=== PATIENT | female | born 1945 | race Caucasian/White ===

== ENCOUNTER 2019-02-15 17:24 | Inpatient (IN) | payer MEDICARE, OTHER ==
[~2019-02-15] VITALS: Ht 165.1 cm; Wt 69.9 kg
[~2019-02-15 17:24] MED LIST: AMLO2.5T2 PO; CLON0.1T14 PO; METO25TA6 PO
--- NOTE | 2019-02-15 18:10 | NUR ---
[facility], PER REPORT VERBALIZED SIBSERGEY LECHUGA FROM [facility] FOR [facility]CH EVAL, PER REPORT VERBALIZED SI. PATIENT A&O TO SELF. REPORTS SOB AND BACK PAIN.
--- NOTE | 2019-02-15 18:11 | NUR ---
O2 SAT 77% WITH O2 AT 2L/MIN VIA NC. PLACED TO NRM AT 15L/MIN. O2 SAT UP TO 100%. MD BEAL
--- NOTE | 2019-02-15 18:20 | NUR ---
RT AT BEDSIDE
[2019-02-15] MEDS ORDERED: methylPREDNISolone SOD SUCC 125 MG/2ML VIAL IV ONE (18:30)
[2019-02-15] MEDS ORDERED: ALBUTEROL FS 2.5 MG/3 ML VIAL.NEB CONTNEB ONE (18:30)
[2019-02-15] MEDS ORDERED: IPRATROPIUM NEB FS 0.5 MG/2.5 ML AMPUL.NEB NEB ONE (18:30)
[2019-02-15 18:35] LABS: BASOPHILS # (AUTO) 0.1 /CMM (0.0-0.2); BASOPHILS % (AUTO) 1.2 % (0.0-2.0); EOSINOPHILS % (AUTO) 0.7 % (0.0-6.0); HEMATOCRIT 38 % (33-45); HEMOGLOBIN 12.3 g/dL (11.5-14.8); LYMPHOCYTES # (AUTO) 1.9 /CMM (0.8-4.8); LYMPHOCYTES % (AUTO) 29.5 % (20.0-44.0); MEAN CORPUSCULAR HGB CONC 32 g/dl (31.0-36.0); MEAN CORPUSCULAR VOLUME 90 fL (82-100); MONOCYTES # (AUTO) 0.8 /CMM (0.1-1.30); MONOCYTES % (AUTO) 12.4 % (2.0-12.0); NEUTROPHILS # (AUTO) 3.6 /CMM (1.8-8.9); NEUTROPHILS % (AUTO) 56.2 % (43.0-81.0); PLATELET COUNT (AUTO) 323 /CMM (150-450); RED BLOOD CELL COUNT(AUTO) 4.29 MIL/uL (4.0-5.2); WHITE BLOOD COUNT (AUTO) 6.3 K/uL (4.3-11.0)
[2019-02-15 18:47] LABS: ACETAMINOPHEN 1 ug/ml (10-30); ALCOHOL, BLOOD < 3 mg/dL (0-0); SALICYLATE 2.1 mg/dL (2.8-20.0)
--- NOTE | 2019-02-15 18:49 | NUR ---
TOPPIECE CHOPPER AT BEDSIDE
[2019-02-15] MEDS ORDERED: FAMO20TA8 PO (18:53)
[2019-02-15] MEDS ORDERED: MAGN400O6 PO (18:53)
[2019-02-15] MEDS ORDERED: POLY15DR40 EACHEYE (18:53)
[2019-02-15] MEDS ORDERED: CARB-94 PO (18:53)
[2019-02-15] MEDS ORDERED: NA P133E RC (18:53)
[2019-02-15] MEDS ORDERED: ACET-868 PO (18:53)
[2019-02-15] MEDS ORDERED: HYDR-4384 PO (18:53)
[2019-02-15] MEDS ORDERED: ALPR1TAB7 PO (18:53)
[2019-02-15] MEDS ORDERED: MIRT15TA7 PO (18:53)
[2019-02-15] MEDS ORDERED: CALC500T63 PO (18:53)
[2019-02-15] MEDS ORDERED: GUAI600T53 PO (18:53)
[2019-02-15] MEDS ORDERED: TEMA15CA PO (18:53)
[2019-02-15] MEDS ORDERED: OMEG1CAP PO (18:53)
[2019-02-15] MEDS ORDERED: PARO20TA7 PO (18:53)
[2019-02-15] MEDS ORDERED: BISA10SU8 RC (18:53)
[2019-02-15] MEDS ORDERED: DILT30TA14 PO (18:53)
[2019-02-15] MEDS ORDERED: CLON0.1T PO (18:53)
[2019-02-15] MEDS ORDERED: IPRA0.2S9 IH (18:53)
[2019-02-15] MEDS ORDERED: METH5TAB6 PO (18:53)
[2019-02-15 18:55] VITALS: BP 130/72
[2019-02-15] MEDS ORDERED: ALBUTEROL FS 2.5 MG/3 ML VIAL.NEB ONE (19:07)
[2019-02-15] MEDS ORDERED: IPRATROPIUM NEB FS 0.5 MG/2.5 ML AMPUL.NEB ONE (19:07)
[2019-02-15] MEDS ORDERED: methylPREDNISolone SOD SUCC 125 MG/2ML VIAL ONE (19:09)
--- NOTE | 2019-02-15 19:19 | NUR ---
REPORT RECEIVED FROM HUE HIDALGO FOR KATHRYN. PT IS HAVING HER XRAY GWEN. PT IN BED
[2019-02-15 19:23] LABS: ALANINE AMINOTRANSFERASE 15 U/L (12-78); ALBUMIN 3.6 g/dL (3.4-5.0); ALKALINE PHOSPHATASE 103 U/L (46-116); ASPARTATE AMINOTRANSFERASE 18 U/L (15-37); BILIRUBIN,DIRECT 0.1 mg/dL (0.0-0.2); BILIRUBIN,TOTAL 0.3 mg/dL (0.2-1.0); CARBON DIOXIDE 30 mmol/L (21-32); CHLORIDE 100 mmol/L (98-107); CREATININE 0.6 mg/dL (0.6-1.3); GLUCOSE 101 mg/dL (74-106); POTASSIUM 3.9 mmol/L (3.5-5.1); SODIUM SERUM 137 mmol/L (136-145); TOTAL PROTEIN, SERUM 7.2 g/dL (6.4-8.2); UREA NITROGEN, BLOOD 10 mg/dL (7-18)
[2019-02-15 19:30] LABS: B-TYPE NATRIURETIC PEPTIDE 430 PG/ML (0-125)
--- NOTE | 2019-02-15 19:55 | NUR ---
PT KEEPS REMOVING BIPAP. PT STATED THAT IT FEELS COLD. PT PLACED ON O2 VIA NV @ 4 LMP AND SATTING AT 95-96% W/O NOTING ANY DISTRESS. ALEXANDREA SAMAYOA NOTIFIED, ORDERED TO PLACE ON MASK @ 8LPM. PT SATTING AT 98$% WITHOUT ANY DISTRESS, PT VERBALIZED RELIEF AND NO SOB. RT MADE AWARE WELL.
--- NOTE | 2019-02-15 20:00 | NUR ---
URINE COLLECTED AND SENT TO LAB
[2019-02-15 20:15] LABS: APPEARANCE,URINE Clear (CLEAR); BILIRUBIN,URINE SMALL (NEGATIVE); BLOOD, URINE Negative Ery/uL (NEGATIVE); COLOR,URINE Yellow (YELLOW); KETONES,URINE 40 (NEGATIVE); LEUKOCYTE ESTERASE ,URINE Trace (NEGATIVE); NITRITE, URINE Negative (NEGATIVE); PROTEIN,URINE Negative (NEGATIVE); UGLUCOSE Negative (NEGATIVE); UROBILINOGEN,URINE 0.2 EU/dL (0.2)
--- NOTE | 2019-02-15 20:18 | NUR ---
RT NOTE LATE ENTRY @195 HUE MARTINEZ PLACED PT ON 7L SIMPLE MASK POST TX. PT SATING 99%. HUE NOTIFIED RT. Addendum: 02/15/19 at 2019 by DENNIS RODRIGUEZ RT Amended: Links added. Addendum: 02/15/19 at 2021 by DENNIS RODRIGUEZ RT HUE MARTINEZ NOTIFIED PHYSICIAN
[2019-02-15 20:35] LABS: BACTERIA,URINE Few /HPF (None Seen); RBC,URINE NONE SEEN /HPF (0-2)
[2019-02-15 20:36] LABS: HYALINE CASTS, URINE Few /LPF (None Seen); MUCUS,URINE Few /LPF (None Seen); SQUAMOUS EPITHELIAL CELL,UR Few /HPF (None Seen)
--- NOTE | 2019-02-15 20:55 | NUR ---
CALLED [facility], PAGED ANDONION
--- NOTE | 2019-02-15 21:52 | NUR ---
CALLED FOR REPORT, NURSE WITH OTHER PT. WILL CALL BACK AGAIN.
[2019-02-15] MEDS ORDERED: Z GUARD REMEDY 2 OZ OINT TP PRN (22:00)
[2019-02-15] MEDS ORDERED: TEMAZEPAM 15 MG CAPSULE PO PRN (22:00)
[2019-02-15] MEDS ORDERED: MIRTAZAPINE 15 MG TABLET PO SCH (22:00)
[2019-02-15] MEDS ORDERED: NA PHOS,M-B/NA PHOS,DI-BA 1 EA ENEMA RC PRN (22:00)
[2019-02-15] MEDS ORDERED: ZOLPIDEM TARTRATE 5 MG TABLET PO PRN (22:00)
[2019-02-15] MEDS ORDERED: PAROXETINE HCL 20 MG TABLET PO SCH (22:00)
[2019-02-15] MEDS ORDERED: MAGNESIUM HYDROXIDE 30 ML UDC PO PRN ×2 (22:00)
[2019-02-15] MEDS ORDERED: AZITHROMYCIN 250 MG TABLET PO ONE (22:00)
[2019-02-15] MEDS ORDERED: MAG HYDROX/AL HYDROX/SIMETH 30 ML UDC PO PRN (22:00)
[2019-02-15] MEDS ORDERED: CLONIDINE HCL 0.1 MG TABLET PO PRN (22:00)
[2019-02-15] MEDS ORDERED: BISACODYL SUPP (10 MG) 10 MG/SUPP.RECT SUPP.RECT RC PRN (22:00)
[2019-02-15] MEDS ORDERED: ACETAMINOPHEN 325 MG TABLET PO PRN (22:00)
[2019-02-15] MEDS ORDERED: ONDANSETRON HCL/PF 4 MG/2 ML VIAL IVP PRN (22:00)
--- NOTE | 2019-02-15 22:03 | NUR ---
REPORT GIVEN TO HUE REEVES FOR KATHRYN. PT GOING TO [address]
--- NOTE | 2019-02-15 22:20 | NUR ---
PT RANSPORTED TO UNIT WITH RN AND EMT AT BEDSIDE W/ ACLS PROTOCOL. PT IS STABLE CONDITION DURING TRASPORT. NAD, BREATHING EVEN AND UNLABORED, PT ON FACE MASK ON O2 @ 8LPM.
[2019-02-15 22:37] VITALS: BP 129/66
[2019-02-16] VITALS: BP 121/69
[2019-02-16] MEDS ORDERED: IPRATROPIUM NEB FS 0.5 MG/2.5 ML AMPUL.NEB NEB SCH ×3 (01:00→07:00)
[2019-02-16] MEDS ORDERED: ALBUTEROL FS 2.5 MG/3 ML VIAL.NEB NEB SCH ×3 (01:00→07:00)
[2019-02-16] MEDS: HYDROCODONE/APAP 5/325MG 1 EACH TABLET PO PRN ×5 (03:37→21:23)
[2019-02-16] MEDS: DILTIAZEM HCL 30 MG TABLET PO SCH ×3 (05:00→20:17)
[2019-02-16 06:46] VITALS: BP 126/69
--- NOTE | 2019-02-16 06:50 | NUR ---
RN NOTES RECEIVED PATIENT FROM ER VIA STRETCHER WITH DIAGNOSIS OF COPD EXACERBATION. NO DISTRESS NOTED. TOLERATING 02 VIA MASK AT 8LPM, LATER CHANGED TO NASAL CANNULA AT 2LPM. COMPLAINING OF LOWER BACK PAIN, NORCO GIVEN WITH RELIEF. ALERT AND ORIENTED. VERBALLY ABLE TO COMMUNICATE NEEDS. NO. KEPT CLEAN AND DRY. NEEDS ATTENDED AND WILL ENDORSE TO NEXT SHIFT FOR CONTINUATION OF JANENE
[2019-02-16] MEDS: IPRATROPIUM NEB FS 0.5 MG/2.5 ML AMPUL.NEB NEB SCH ×5 (07:13→23:20)
[2019-02-16] MEDS: ALBUTEROL FS 2.5 MG/3 ML VIAL.NEB NEB SCH ×5 (07:13→23:20)
[2019-02-16 07:40] LABS: BASOPHILS % (AUTO) 0.5 % (0.0-2.0); HEMATOCRIT 38 % (33-45); HEMOGLOBIN 12.2 g/dL (11.5-14.8); LYMPHOCYTES # (AUTO) 0.7 /CMM (0.8-4.8); LYMPHOCYTES % (AUTO) 11.3 % (20.0-44.0); MEAN CORPUSCULAR HGB CONC 32 g/dl (31.0-36.0); MEAN CORPUSCULAR VOLUME 89 fL (82-100); MONOCYTES # (AUTO) 0.1 /CMM (0.1-1.30); MONOCYTES % (AUTO) 1.1 % (2.0-12.0); NEUTROPHILS # (AUTO) 5.5 /CMM (1.8-8.9); NEUTROPHILS % (AUTO) 87.1 % (43.0-81.0); PLATELET COUNT (AUTO) 356 /CMM (150-450); RED BLOOD CELL COUNT(AUTO) 4.28 MIL/uL (4.0-5.2); WHITE BLOOD COUNT (AUTO) 6.3 K/uL (4.3-11.0)
[2019-02-16 07:55] LABS: CHOLESTEROL 232 mg/dL (<200); HDL CHOLESTEROL 53 mg/dL (40-60); LDL 139 mg/dL (0-99); TRIGLYCERIDES 165 mg/dL (30-150)
[2019-02-16 08:00] VITALS: BP 148/72
[2019-02-16] MEDS: CALCIUM CARBONATE 500 MG TAB.CHEW PO SCH ×3 (08:11→18:00)
[2019-02-16] MEDS: POLYVINYL ALCOHOL 15 ML BOTTLE EACHEYE SCH ×3 (08:11→16:45)
[2019-02-16] MEDS: METHIMAZOLE (5MG) 5 MG TABLET PO SCH ×3 (08:12→16:44)
[2019-02-16] MEDS: methylPREDNISolone SOD SUCC 40 MG/ML VIAL IV SCH (08:12)
[2019-02-16] MEDS: ALPRAZOLAM 1 MG TABLET PO SCH ×3 (08:13→16:44)
[2019-02-16] MEDS: METOPROLOL TARTRATE 25 MG TABLET PO SCH ×2 (08:13→16:44)
[2019-02-16] MEDS: CARBIDOPA/LEVODOPA 25/250 MG 1 UDTAB PO SCH ×3 (08:13→16:44)
[2019-02-16] MEDS: AZITHROMYCIN 250 MG TABLET PO SCH (08:14)
[2019-02-16] MEDS: FAMOTIDINE (20 MG) 20 MG TABLET PO SCH (08:14)
[2019-02-16] MEDS: GUAIFENESIN LA 600 MG TABLET.SA PO PRN (08:15)
[2019-02-16] MEDS ORDERED: Medication Not On Formulary EA (Omega-3 Fatty Acids/Fish Oil (Fish Oil 1,000 Mg Capsule) PO SCH (09:00)
[2019-02-16 09:08] LABS: CALCIUM, SERUM 8.3 mg/dL (8.5-10.1); CARBON DIOXIDE 28 mmol/L (21-32); CHLORIDE 94 mmol/L (98-107); CREATININE 0.7 mg/dL (0.6-1.3); GLUCOSE 123 mg/dL (74-106); PHOSPHORUS 2.8 mg/dL (2.5-4.9); POTASSIUM 4.6 mmol/L (3.5-5.1); SODIUM SERUM 134 mmol/L (136-145); UREA NITROGEN, BLOOD 16 mg/dL (7-18)
[2019-02-16 12:00] VITALS: BP 135/68
[2019-02-16 16:00] VITALS: BP 127/60
--- NOTE | 2019-02-16 19:10 | NUR ---
MS RN OPENING NOTES Received patient in bed, alert, oriented x 3. Breathing even and unlabored. No distress noted, on O2 at 2LPM via nasal cannula. Patient has 1:1 sitter at bedside for suicidal precautions. Jiménez catheter in place- draining clear yellow urine. Patient stable as endorsed by the AM RN. Safety measures in place; call light within reach, bed in low, locked position. Will continue to monitor accordingly
[2019-02-16 20:00] VITALS: BP 123/60
[2019-02-16] MEDS: DIVALPROEX SODIUM 250 MG TABLET.DR PO SCH (20:17)
--- NOTE | 2019-02-16 21:24 | NUR ---
RN NOTES Patient c/o pain on lower back, 04/21. Requested for norco. [place] 5-325 given as ordered.
[2019-02-17] MEDS: HYDROCODONE/APAP 5/325MG 1 EACH TABLET PO PRN ×4 (01:25→20:49)
--- NOTE | 2019-02-17 01:25 | NUR ---
RN NOTES Patient c/o pain on lower back, 04/21. Requested for norco. [place] 5-325 given as ordered.
[2019-02-17] MEDS: ALBUTEROL FS 2.5 MG/3 ML VIAL.NEB NEB SCH ×6 (03:46→23:52)
[2019-02-17] MEDS: IPRATROPIUM NEB FS 0.5 MG/2.5 ML AMPUL.NEB NEB SCH ×6 (03:46→23:52)
[2019-02-17 04:00] VITALS: BP 124/68
[2019-02-17] MEDS: DILTIAZEM HCL 30 MG TABLET PO SCH ×3 (04:19→20:48)
--- NOTE | 2019-02-17 06:40 | NUR ---
MS RN CLOSING NOTES Patient in bed, alert, oriented x 3. Breathing even and unlabored. No distress noted, on O2 at 2LPM via nasal cannula. Patient has 1:1 sitter at bedside for suicidal precautions. Jiménez catheter in place- draining clear yellow urine. All needs attended to. All due medications given as ordered. Safety measures in place; call light within reach, bed in low, locked position. Will endorse KATHRYN to oncoming RN
[2019-02-17 07:43] VITALS: BP 132/62
[2019-02-17] MEDS: CALCIUM CARBONATE 500 MG TAB.CHEW PO SCH ×3 (08:25→18:10)
[2019-02-17 08:31] LABS: CALCIUM, SERUM 8.8 mg/dL (8.5-10.1); CARBON DIOXIDE 29 mmol/L (21-32); CHLORIDE 94 mmol/L (98-107); CREATININE 0.5 mg/dL (0.6-1.3); GLUCOSE 121 mg/dL (74-106); PHOSPHORUS 2.1 mg/dL (2.5-4.9); POTASSIUM 5.2 mmol/L (3.5-5.1); SODIUM SERUM 129 mmol/L (136-145); UREA NITROGEN, BLOOD 15 mg/dL (7-18)
[2019-02-17] MEDS: METHIMAZOLE (5MG) 5 MG TABLET PO SCH ×3 (08:44→17:44)
[2019-02-17] MEDS: ALPRAZOLAM 0.25 MG TABLET PO SCH ×3 (08:44→17:44)
[2019-02-17] MEDS: FAMOTIDINE (20 MG) 20 MG TABLET PO SCH (08:44)
[2019-02-17] MEDS: AZITHROMYCIN 250 MG TABLET PO SCH (08:45)
[2019-02-17] MEDS: METOPROLOL TARTRATE 25 MG TABLET PO SCH ×2 (08:47→17:45)
[2019-02-17] MEDS: methylPREDNISolone SOD SUCC 40 MG/ML VIAL IV SCH (08:48)
[2019-02-17] MEDS: CARBIDOPA/LEVODOPA 25/250 MG 1 UDTAB PO SCH ×3 (09:08→17:44)
[2019-02-17] MEDS: POLYVINYL ALCOHOL 15 ML BOTTLE EACHEYE SCH ×3 (09:12→17:47)
[2019-02-17 09:42] LABS: HEMATOCRIT 35 % (33-45); HEMOGLOBIN 11.6 g/dL (11.5-14.8); LYMPHOCYTES # (AUTO) 1.3 /CMM (0.8-4.8); LYMPHOCYTES % (AUTO) 11.6 % (20.0-44.0); MEAN CORPUSCULAR HGB CONC 33 g/dl (31.0-36.0); MEAN CORPUSCULAR VOLUME 88 fL (82-100); MONOCYTES % (AUTO) 8.9 % (2.0-12.0); NEUTROPHILS # (AUTO) 9.3 /CMM (1.8-8.9); NEUTROPHILS % (AUTO) 79.5 % (43.0-81.0); PLATELET COUNT (AUTO) 389 /CMM (150-450); WHITE BLOOD COUNT (AUTO) 11.6 K/uL (4.3-11.0)
[2019-02-17] MEDS: DIVALPROEX SODIUM 125 MG TABLET.DR PO SCH (11:54)
[2019-02-17 13:00] VITALS: BP 155/86
[2019-02-17] MEDS ORDERED: K PHOS NEUTRAL 250 MG TABLET PO ONE (13:00)
[2019-02-17 16:19] VITALS: BP 148/79
--- NOTE | 2019-02-17 17:12 | NUR ---
Nurse Notes: Seen by Silas PHYSICAL SCIENCE PROFESSOR, ordering pain management Kana Dave MD to see patient, earlier took the Xanax and then ask for the Morris. this afternoon, Xanax is order TID, but spacing out the Morris. Then asking for respiratory therapy. Pulse ox is 91% on 2 liters, patient is encourage to cough and deep breath, patient is coughing up thick phelgm.
--- NOTE | 2019-02-17 19:10 | NUR ---
Nurse Notes: report given to night nurse Doyle Noriega RN. Guthrie is due at 2029. had Xanax .75 mg more relxed. needs to be seen by waiting for Kana Sahu MD
[2019-02-17 20:00] VITALS: BP 148/73
[2019-02-17] MEDS: DIVALPROEX SODIUM 250 MG TABLET.DR PO SCH (20:47)
[2019-02-17 21:19] VITALS: BP 148/73
[2019-02-17] MEDS: GUAIFENESIN LA 600 MG TABLET.SA PO PRN (22:23)
[2019-02-18] MEDS: ALBUTEROL FS 2.5 MG/3 ML VIAL.NEB NEB SCH ×6 (03:47→22:55)
[2019-02-18] MEDS: IPRATROPIUM NEB FS 0.5 MG/2.5 ML AMPUL.NEB NEB SCH ×6 (03:47→22:55)
[2019-02-18 04:00] VITALS: BP 129/67
[2019-02-18 04:08] VITALS: BP 148/73
[2019-02-18] MEDS: DILTIAZEM HCL 30 MG TABLET PO SCH ×3 (05:49→20:19)
[2019-02-18] MEDS: HYDROCODONE/APAP 5/325MG 1 EACH TABLET PO PRN ×3 (06:16→20:02)
[2019-02-18] MEDS: CALCIUM CARBONATE 500 MG TAB.CHEW PO SCH ×3 (08:00→17:10)
[2019-02-18] MEDS: FAMOTIDINE (20 MG) 20 MG TABLET PO SCH (09:00)
[2019-02-18] MEDS: CARBIDOPA/LEVODOPA 25/250 MG 1 UDTAB PO SCH ×3 (09:00→17:10)
[2019-02-18] MEDS: AZITHROMYCIN 250 MG TABLET PO SCH (09:00)
[2019-02-18] MEDS: ALPRAZOLAM 0.25 MG TABLET PO SCH ×3 (09:00→17:10)
[2019-02-18] MEDS: DIVALPROEX SODIUM 125 MG TABLET.DR PO SCH (09:00)
[2019-02-18] MEDS: MUPIROCIN OINT 2% 22 GM TUBE SCH ×2 (09:00→21:08)
[2019-02-18] MEDS: POLYVINYL ALCOHOL 15 ML BOTTLE EACHEYE SCH ×3 (09:00→17:07)
[2019-02-18] MEDS: methylPREDNISolone SOD SUCC 40 MG/ML VIAL IV SCH (09:00)
[2019-02-18] MEDS: METHIMAZOLE (5MG) 5 MG TABLET PO SCH ×3 (09:00→17:10)
[2019-02-18] MEDS: METOPROLOL TARTRATE 25 MG TABLET PO SCH ×2 (09:00→17:10)
[2019-02-18] MEDS ORDERED: MORPHINE SULFATE INJ 2 MG/ML DISP.SYRIN IV ONE (11:00)
[2019-02-18 12:00] VITALS: BP 138/67
[2019-02-18] MEDS: HYDROCODONE/APAP 10/325MG 1 EA TABLET PO PRN (15:08)
[2019-02-18] MEDS: PREGABALIN 25 MG CAPSULE PO SCH (17:10)
--- NOTE | 2019-02-18 19:00 | NUR ---
MS RN OPENING NOTES Received patient A/O x3, awake on semi-Ramos's position on bed. With O2 via NC @ 3LPM, saturating well, no SOB/respiratory distress noted. Patient noted with mild anxiety. With indwelling FC with clear yellow urine output noted. With order for Urine Na+ and osmolarity. To collect urine from FC. On fall precautions, call light within easy reach. Will continue to monitor accordingly.
[2019-02-18 20:00] VITALS: BP 137/73
[2019-02-18] MEDS: GUAIFENESIN LA 600 MG TABLET.SA PO PRN (20:02)
[2019-02-18] MEDS: DIVALPROEX SODIUM 250 MG TABLET.DR PO SCH (20:02)
[2019-02-19] MEDS: HYDROCODONE/APAP 10/325MG 1 EA TABLET PO PRN ×6 (00:03→22:49)
--- NOTE | 2019-02-19 01:15 | NUR ---
MS RN NOTES Urine collected from FC. Aseptic technique observed during the procedure. Specimen labeled and stored accordingly. Lab notified for specimen ready for collection .
[2019-02-19] MEDS: ALBUTEROL FS 2.5 MG/3 ML VIAL.NEB NEB SCH ×6 (02:43→23:06)
[2019-02-19] MEDS: IPRATROPIUM NEB FS 0.5 MG/2.5 ML AMPUL.NEB NEB SCH ×6 (02:43→23:06)
[2019-02-19] MEDS: DILTIAZEM HCL 30 MG TABLET PO SCH ×3 (04:13→20:22)
[2019-02-19 06:45] LABS: CALCIUM, SERUM 8.5 mg/dL (8.5-10.1); CARBON DIOXIDE 34 mmol/L (21-32); CHLORIDE 94 mmol/L (98-107); CREATININE 0.7 mg/dL (0.6-1.3); GLUCOSE 98 mg/dL (74-106); PHOSPHORUS 3.1 mg/dL (2.5-4.9); POTASSIUM 4.2 mmol/L (3.5-5.1); SODIUM SERUM 135 mmol/L (136-145); UREA NITROGEN, BLOOD 12 mg/dL (7-18)
[2019-02-19 06:50] LABS: THYROID STIMULATING HORMONE 7.677 uIU/mL (0.358-3.74); URIC ACID 2.1 mg/dL (2.6-7.2)
[2019-02-19 06:55] LABS: URINE SODIUM, RANDOM 47 mmol/l (40-220)
--- NOTE | 2019-02-19 06:55 | NUR ---
MS RN CLOSING NOTES Patient intermittently asleep on bed, on O2 inhalation via NC @ 5LPM, saturating well, no SOB/respiratory distress noted. All nursing needs attended. Due meds given as ordered. Educated patient about the PRN meds interval, patient verbalized understanding. With indwelling valente catheter in place, with clear urine output. Awaiting for Urine Na+ and osmolarity result at this time. On fall precautions, call light within easy reach. Endorsed to the next shift.
--- NOTE | 2019-02-19 07:25 | NUR ---
RN OPENING NOTES PATIENT IN BED AWAKE AND ALERT. WAS ASKING FOR PAIN MEDICATION FOR HER NECK, BUT TOLD HER NOT DUE UNTIL 0900. PER NOC SHIFT, PATIENT WANTS HER NORCO Q2H. AND PANICS EASILY. PATIENT HAS A RIGHT WRIST #20 SALINE LOCKED. BED LOCKED AND IN LOWEST POSITION. CALL LIGHT WITHIN REACH. WILL CONTINUE TO MONITOR.
[2019-02-19 07:49] LABS: OSMOLALITY,URINE 252 mOS/kg (340-1090)
[2019-02-19 08:00] VITALS: BP 154/77
[2019-02-19] MEDS: CALCIUM CARBONATE 500 MG TAB.CHEW PO SCH ×3 (08:44→17:10)
[2019-02-19] MEDS: ALPRAZOLAM 0.25 MG TABLET PO SCH ×3 (08:45→16:43)
[2019-02-19] MEDS: DIVALPROEX SODIUM 125 MG TABLET.DR PO SCH (08:45)
[2019-02-19] MEDS: PREGABALIN 25 MG CAPSULE PO SCH ×2 (08:45→16:43)
[2019-02-19] MEDS: CARBIDOPA/LEVODOPA 25/250 MG 1 UDTAB PO SCH ×3 (08:46→16:43)
[2019-02-19] MEDS: FAMOTIDINE (20 MG) 20 MG TABLET PO SCH (08:46)
[2019-02-19] MEDS: METHIMAZOLE (5MG) 5 MG TABLET PO SCH ×3 (08:46→16:43)
[2019-02-19] MEDS: methylPREDNISolone SOD SUCC 40 MG/ML VIAL IV SCH (08:47)
[2019-02-19] MEDS: METOPROLOL TARTRATE 25 MG TABLET PO SCH ×2 (08:47→16:45)
[2019-02-19] MEDS: MUPIROCIN OINT 2% 22 GM TUBE SCH ×2 (08:52→20:22)
[2019-02-19] MEDS: POLYVINYL ALCOHOL 15 ML BOTTLE EACHEYE SCH ×3 (08:53→16:44)
[2019-02-19 10:00] VITALS: BP 154/77
[2019-02-19 16:00] VITALS: BP 130/80
--- NOTE | 2019-02-19 16:52 | NUR ---
RN NOTES PATIENT WAS COMPLAINING OF NECK PAIN THROUGHOUT THE DAY. WAS GIVEN NORCO Q4H PRN AT 0830, 1250 AND 1650. BREANA SANTIAGO DNP MADE AWARE AND HE SAID HE ALREADY ORDERED FOR A PAIN MANAGEMENT CONSULT ALSO, PATIENT WAS REQUESTING FOR A SLEEPING PILL BECAUSE SHE WAS HAVING A HARD TIME SLEEPING LAST NIGHT. DNP SAID HE WILL CHECK ALL THE PATIENT'S MEDS FIRST BEFORE PRESCRIBING
--- NOTE | 2019-02-19 19:03 | NUR ---
RN CLOSING NOTES PATIENT IN BED AWAKE AND ALERT. WAS GIVEN NORCO Q4H PRN REQUESTED BY PATIENT WITH 10/10 NECK PAIN. VSS THROUGHOUT THE SHIFT. BED LOCKED AND IN LOWEST POSITION. WILL ENDORSE TO NOC SHIFT FOR KATHRYN
--- NOTE | 2019-02-19 19:30 | NUR ---
MS RN NOTE: RECEIVED PT ON BED ALERT AND ORIENTED X3. ABLE TO MAKE NEEDS KNOWN. NO APPARENT DISTRESS NOTED. NO COMPLAINTS OF PAIN OR DISCOMFORT AT THIS TIME. ON 3LPM NASAL CANNULA, NO SOB NOTED. FARIAS CATH INTACT AND PATENT, DRAINING WELL. IV ON RIGHT WRIST #20 INTACT AND PATENT, FLUSHING WELL. CALL LIGHT PLACED WITHIN REACH. KEPT CLEAN, DRY AND COMFORTABLE. SAFETY AND FALL PRECAUTIONS OBSERVED AND MAINTAINED. WILL CONTINUE TO MONITOR PT.
[2019-02-19 20:00] VITALS: BP 136/75
[2019-02-19] MEDS: DIVALPROEX SODIUM 250 MG TABLET.DR PO SCH (20:22)
[2019-02-19] MEDS ORDERED: risperiDONE 0.25 MG TABLET PO SCH (22:30)
[2019-02-20] MEDS: GUAIFENESIN LA 600 MG TABLET.SA PO PRN (00:58)
[2019-02-20] MEDS: HYDROCODONE/APAP 10/325MG 1 EA TABLET PO PRN (02:50)
[2019-02-20] MEDS: ALBUTEROL FS 2.5 MG/3 ML VIAL.NEB NEB SCH ×4 (02:56→16:42)
[2019-02-20] MEDS: IPRATROPIUM NEB FS 0.5 MG/2.5 ML AMPUL.NEB NEB SCH ×4 (02:56→16:42)
[2019-02-20 04:00] VITALS: BP 153/82
[2019-02-20] MEDS: DILTIAZEM HCL 30 MG TABLET PO SCH ×2 (04:32→12:52)
--- NOTE | 2019-02-20 06:31 | NUR ---
MS RN NOTE: NO CHANGES NOTED THROUGHOUT THE SHIFT. NO SUICIDAL IDEATIONS AND NO APPARENT DISTRESS NOTED. PT COMPLAINED OF BACK AND RIGHT HIP PAIN, PRN NORCO GIVEN ORDERED. ON 3LPM NASAL CANNULA, NO SOB NOTED. IV ON RIGHT WRIST #20 INTACT AND FLUSHING WELL. NO SIGNS/SYMPTOMS OF INFILTARTION NOTED. FARIAS CATH INTACT AND PATENT, DRAINED 1300ML OF CLEAR YELLOW URINE OUTPUT. KEPT CLEAN, DRY AND COMFORTABLE. CALL LIGHT PLACED WITHIN REACH. SAFETY AND FALL PRECAUTIONS OBSERVED AND MAINTAINED. WILL ENDORSE TO DAY SHIFT RN FOR CONTINUITY OF CARE.
--- NOTE | 2019-02-20 07:30 | NUR ---
RN NOTES RECEIVED PATIENT IN BED, ASLEEP BUT EASILY AWAKEN BY VERBAL STIMULI. ORIENTED X3, ABLE TO MAKE NEEDS KNOWN. WAS ASKING FOR MEDICATION FOR PAIN DUE TO NECK DISCOMFORT, PAIN SCALE OF 10/10. INFORMED PATIENT WILL ADMINISTER DUE MEDICATION. PATIENT HAS A RIGHT WRIST #20, IN PLACE D AND INTACT, PATENT ON FLUSHING:SALINE LOCKED. ENCOURAGE TO CALL FOR HELP AND ASSISTANCE. CALL LIGHT PLACED WITHIN REACHED. BED LOCKED AND IN LOWEST POSITION.. WILL CONTINUE TO ANTICIPATE NEEDS AND MONITOR CHANGES.
[2019-02-20 08:00] VITALS: BP 129/69
[2019-02-20] MEDS: methylPREDNISolone SOD SUCC 40 MG/ML VIAL IV SCH (08:29)
[2019-02-20] MEDS: METOPROLOL TARTRATE 25 MG TABLET PO SCH ×2 (08:29→16:57)
[2019-02-20] MEDS: CALCIUM CARBONATE 500 MG TAB.CHEW PO SCH ×3 (08:29→16:56)
[2019-02-20] MEDS: METHIMAZOLE (5MG) 5 MG TABLET PO SCH ×3 (08:30→16:55)
[2019-02-20] MEDS: DIVALPROEX SODIUM 125 MG TABLET.DR PO SCH (08:30)
[2019-02-20] MEDS: ALPRAZOLAM 0.25 MG TABLET PO SCH ×3 (08:30→16:55)
[2019-02-20] MEDS: PREGABALIN 25 MG CAPSULE PO SCH ×2 (08:30→16:55)
[2019-02-20] MEDS: CARBIDOPA/LEVODOPA 25/250 MG 1 UDTAB PO SCH ×3 (08:30→16:55)
[2019-02-20] MEDS: FAMOTIDINE (20 MG) 20 MG TABLET PO SCH (08:30)
[2019-02-20] MEDS: POLYVINYL ALCOHOL 15 ML BOTTLE EACHEYE SCH ×3 (08:38→16:57)
[2019-02-20] MEDS: MUPIROCIN OINT 2% 22 GM TUBE SCH (08:38)
[2019-02-20] MEDS: HYDROCODONE/APAP 5/325MG 1 EACH TABLET PO PRN ×2 (09:32→15:53)
--- NOTE | 2019-02-20 11:19 | NUR ---
Social Work Discharge Note Met with patient who denies any current suicidal ideation. Also discussed case with Dr Tellez who says she adjusted patient's medication last night and added an anti-psychotic. She feels patient can be followed by outpatient psychiatrist at [facility]. This clinician met with the patient who stated " I am napping now as I did not sleep well last night". Pt. denied any current suicidal ideation and acknowledged that she does get fleeting suicidal ideation from time to time. She has no current plan or ideation. Patient is not meeting inpatient acute psychiatric admission criteria. Discussed with herberth Mcdowell RN who is aware of the plan for patient to return to group home facility. Plan: Patient will return to [facility] and be followed by outpatient psychiatrist.
[2019-02-20 12:00] VITALS: BP 129/69
[2019-02-20 16:00] VITALS: BP 141/82
[2019-02-20 16:57] VITALS: BP 140/72
--- NOTE | 2019-02-20 17:00 | NUR ---
RN NOTES OBTAINED ORDER FOR DISCHARGE FROM VLADIMIR DUDLEY DNP. ORDER NOTED AND CARRIED OUT. PATIENT MADE AWARE. ALL QUESTION AND CONCERNS ADDRESSED APPROPRIATELY. PNEUMONIA VACCINE STATUS OBTAINED FROM THE PATIENT. SKIN ASSESSMENT DONE: SKIN INTACT. NO BELONGINGS WERE ACCOUNTED. PATIENT MADE CLEAN AND DRY. AWAITING TRANSPORT TEAM
[2019-02-20] MEDS ORDERED: ALPR1TAB7 PO (17:08)
[2019-02-20] MEDS ORDERED: DIVA125T2 PO (17:08)
[2019-02-20] MEDS ORDERED: DIVA250T4 PO (17:08)
[2019-02-20] MEDS ORDERED: PRED20TA PO (17:12)
[2019-02-20] MEDS ORDERED: PANT40TA2 PO (17:12)
[2019-02-20] MEDS ORDERED: LEVO500T75 PO (17:12)
--- NOTE | 2019-02-20 18:20 | NUR ---
RN NOTES REPORTS GIVEN TO HUE SOTELO.
--- NOTE | 2019-02-20 18:58 | NUR ---
RN NOTES PATIENT WHEELED OUT OF THE UNIT. ACCOMPANIED BY 2 EMT Addendum: 02/20/19 at 1932 by EVANS MASON RN IV LINE AND ID BAND REMOVED
== END 2019-02-20 18:25 | DRG 191 ==
LOC: ER 17:35 → ICU 21:20 → TELE-TD 21:29 → MEDSG1 02-16 12:30
PROVIDERS: ADMIT Family Medicine; ATTEND Nurse Practitioner Acute Care
PROC: 5A09357 Assistance with Respiratory Ventilation, Less than 24 Consecutive Hours, Continuous Positive Airway Pressure (ICD-10-PCS; principal; 2019-02-15)
DX: J44.1 Chronic obstructive pulmonary disease with (acute) exacerbation (principal); E22.2 Syndrome of inappropriate secretion of antidiuretic hormone; F11.20 Opioid dependence, uncomplicated; F13.20 Sedative, hypnotic or anxiolytic dependence, uncomplicated; G20 Parkinson's disease; K21.9 Gastro-esophageal reflux disease without esophagitis; F32.9 Major depressive disorder, single episode, unspecified; I10 Essential (primary) hypertension; F41.9 Anxiety disorder, unspecified; E83.39 Other disorders of phosphorus metabolism; F25.0 Schizoaffective disorder, bipolar type; E87.5 Hyperkalemia; E78.5 Hyperlipidemia, unspecified; G31.84 Mild cognitive impairment of uncertain or unknown etiology; M94.0 Chondrocostal junction syndrome [Tietze]; M81.0 Age-related osteoporosis without current pathological fracture; Z91.19 Patient's noncompliance with other medical treatment and regimen; Z22.322 Carrier or suspected carrier of Methicillin resistant Staphylococcus aureus; T38.0X5A Adverse effect of glucocorticoids and synthetic analogues, initial encounter; D72.829 Elevated white blood cell count, unspecified; E05.90 Thyrotoxicosis, unspecified without thyrotoxic crisis or storm; Z88.0 Allergy status to penicillin; Z96.642 Presence of left artificial hip joint; F09 Unspecified mental disorder due to known physiological condition; M19.90 Unspecified osteoarthritis, unspecified site; G89.29 Other chronic pain; M54.5 Low back pain
CPT/HCPCS: 31720; 36415; 71045-TC; 73502; 73564-TC; 80048-TC; 80061-TC; 80076-TC; 80305; 81000-TC; 83735-TC; 83880; 83935-TC; 84100-TC; 84300-TC; 84443-TC; 84484-TC; 84550-TC; 85025-TC; 87081-TC; 87086-TC; 93307-TC; 94760-TC; 94799-TC; A6402; G0378; G0480; J2270; J2920; J2930

== ENCOUNTER 2019-02-21 21:36 | Emergency (ER) | payer MEDICARE, OTHER ==
[~2019-02-21] VITALS: Ht 152.4 cm; Wt 72.6 kg
[~2019-02-21 21:36] MED LIST changes: +ACET-868 PO; +ALPR1TAB7 PO; -AMLO2.5T2 PO; +BISA10SU8 RC; +CALC500T63 PO; +CARB-94 PO; +CLON0.1T PO; -CLON0.1T14 PO; +DILT30TA14 PO; +DIVA125T2 PO; +DIVA250T4 PO; +FAMO20TA8 PO; +GUAI600T53 PO; +HYDR-4384 PO; +IPRA0.2S9 IH; +LEVO500T75 PO; +MAGN400O6 PO; +METH5TAB6 PO; +NA P133E RC; +OMEG1CAP PO; +PANT40TA2 PO; +POLY15DR40 EACHEYE; +PRED20TA PO
--- NOTE | 2019-02-21 21:45 | NUR ---
TO BED 3 BIB EMS C/O "FEELING HOT" AND GENERALIZED BODY ACHES. PT CALLED 911 HERSELF. PT REPORTS THAT HER ROOM AT THE SNF WAS VERY HOT AND THAT SHE IS GETTING DEHYDRATED IN THERE. PT AAOX4 NO ACUTE DISTRESS NOTED, RESP EVEN AND UNLABORED. PLACE PT ON CARDIAC MONITORING, CONTINUOUS POX, O2@4L/NC. PENDING ER MD BREWSTER.
[2019-02-21] MEDS ORDERED: IV NS 0.9% 1,000 ML BAG IV ONE (22:30)
[2019-02-21 22:31] LABS: HEMATOCRIT 39 % (33-45); HEMOGLOBIN 12.8 g/dL (11.5-14.8); LYMPHOCYTES # (AUTO) 0.9 /CMM (0.8-4.8); LYMPHOCYTES % (AUTO) 5.6 % (20.0-44.0); MEAN CORPUSCULAR HGB CONC 32 g/dl (31.0-36.0); MEAN CORPUSCULAR VOLUME 88 fL (82-100); MONOCYTES # (AUTO) 1.4 /CMM (0.1-1.30); MONOCYTES % (AUTO) 8.9 % (2.0-12.0); NEUTROPHILS # (AUTO) 13.6 /CMM (1.8-8.9); NEUTROPHILS % (AUTO) 85.5 % (43.0-81.0); PLATELET COUNT (AUTO) 476 /CMM (150-450); RED BLOOD CELL COUNT(AUTO) 4.46 MIL/uL (4.0-5.2)
[2019-02-21 22:36] LABS: CARBON DIOXIDE 32 mmol/L (21-32); CHLORIDE 92 mmol/L (98-107); CREATININE 0.6 mg/dL (0.6-1.3); GLUCOSE 112 mg/dL (74-106); SODIUM SERUM 129 mmol/L (136-145); UREA NITROGEN, BLOOD 18 mg/dL (7-18)
[2019-02-21] MEDS ORDERED: LORAZEPAM 0.5 MG TABLET ONE (22:51)
[2019-02-21] MEDS ORDERED: LORAZEPAM 1 MG TABLET PO ONE (23:00)
--- NOTE | 2019-02-22 00:14 | NUR ---
REPORT CALLED TO CLAUDIAArminda SANDY.
--- NOTE | 2019-02-22 00:16 | NUR ---
[facility] CALLED FOR TRASNPORT. ETA 1-1.5 HRS. TRIP# [id number]
--- NOTE | 2019-02-22 02:07 | NUR ---
GAVE REPORT TO JONA FOR TRANSPORTATION KATHRYN
--- NOTE | 2019-02-22 02:21 | NUR ---
IV removed. Catheter intact and site benign. Pressure and 4x4 applied to site. No bleeding noted. REPORT GIVEN TO EMT TRANSPORT.
[2019-02-22 02:24] VITALS: BP 142/63
[2019-03-01] MEDS ORDERED: PRED20TA PO (11:25)
[2019-03-01] MEDS ORDERED: ALBU2.5V13 NEB (11:25)
[2019-03-01] MEDS ORDERED: AZIT250T PO (11:25)
== END 2019-02-22 02:24 | disposition home or self-care (01) ==
LOC: ER 21:40
DX: E86.0 Dehydration (principal); I10 Essential (primary) hypertension; Z98.890 Other specified postprocedural states; Z88.0 Allergy status to penicillin; Z88.6 Allergy status to analgesic agent; Z88.9 Allergy status to unspecified drugs, medicaments and biological substances
CPT/HCPCS: 36415; 80048; 85025; 96360; 99283; J7030

== ENCOUNTER 2019-02-26 23:22 | Inpatient (IN) | payer MEDICARE, OTHER ==
[~2019-02-26] VITALS: Ht 152.4 cm; Wt 71.3 kg
[~2019-02-26 23:22] MED LIST changes: +BISA10SU11 RC; -BISA10SU8 RC
--- NOTE | 2019-02-26 23:25 | NUR ---
PT PORFIRIO C/O "FOR LAYING IN THE FACILITY ALL DAY, YELLING FOR STAFF AND NOBODY WILL COME." PT AXO4. RESPIRATIONS EVEN AND UNLABORED. PT PUT ON THE CURVE SAW OPERATOR AND PULSE OX.
--- NOTE | 2019-02-27 00:25 | NUR ---
STAFFING ASSISTANT AT BEDSIDE, LABS DRAWN AND SENT.
[2019-02-27] MEDS ORDERED: IV NS 0.9% 500 ML BAG IV ONE (00:30)
[2019-02-27] MEDS ORDERED: MORPHINE SULFATE INJ 2 MG/ML DISP.SYRIN IV ONE (00:30)
[2019-02-27] MEDS ORDERED: ALBUTEROL FS 2.5 MG/3 ML VIAL.NEB NEB ONE (00:30)
[2019-02-27] MEDS ORDERED: methylPREDNISolone SOD SUCC 125 MG/2ML VIAL IV ONE (00:30)
[2019-02-27] MEDS ORDERED: IPRATROPIUM NEB FS 0.5 MG/2.5 ML AMPUL.NEB NEB ONE (00:30)
[2019-02-27 00:37] LABS: BASOPHILS # (AUTO) 0.2 /CMM (0.0-0.2); BASOPHILS % (AUTO) 1.1 % (0.0-2.0); EOSINOPHILS % (AUTO) 3.1 % (0.0-6.0); HEMATOCRIT 38 % (33-45); HEMOGLOBIN 12.3 g/dL (11.5-14.8); LYMPHOCYTES # (AUTO) 4.9 /CMM (0.8-4.8); LYMPHOCYTES % (AUTO) 29.6 % (20.0-44.0); MEAN CORPUSCULAR HGB CONC 32 g/dl (31.0-36.0); MEAN CORPUSCULAR VOLUME 89 fL (82-100); MONOCYTES # (AUTO) 2.1 /CMM (0.1-1.30); MONOCYTES % (AUTO) 12.5 % (2.0-12.0); NEUTROPHILS % (AUTO) 53.7 % (43.0-81.0); PLATELET COUNT (AUTO) 441 /CMM (150-450); RED BLOOD CELL COUNT(AUTO) 4.28 MIL/uL (4.0-5.2); WHITE BLOOD COUNT (AUTO) 16.7 K/uL (4.3-11.0)
[2019-02-27 00:45] LABS: CALCIUM, SERUM 8.7 mg/dL (8.5-10.1); CARBON DIOXIDE 38 mmol/L (21-32); CHLORIDE 93 mmol/L (98-107); CREATININE 0.7 mg/dL (0.6-1.3); GLUCOSE 101 mg/dL (74-106); POTASSIUM 4.9 mmol/L (3.5-5.1); SODIUM SERUM 134 mmol/L (136-145); UREA NITROGEN, BLOOD 14 mg/dL (7-18)
[2019-02-27] MEDS ORDERED: MORPHINE SULFATE INJ 2 MG/ML DISP.SYRIN ONE (00:47)
[2019-02-27] MEDS ORDERED: methylPREDNISolone SOD SUCC 125 MG/2ML VIAL ONE (00:47)
[2019-02-27] MEDS ORDERED: ALBUTEROL FS 2.5 MG/3 ML VIAL.NEB ONE (00:51)
[2019-02-27] MEDS ORDERED: IPRATROPIUM NEB FS 0.5 MG/2.5 ML AMPUL.NEB ONE (00:51)
--- NOTE | 2019-02-27 00:55 | NUR ---
RT AT BEDSIDE.
[2019-02-27 01:00] LABS: ALANINE AMINOTRANSFERASE 8 U/L (12-78); ALBUMIN 3.3 g/dL (3.4-5.0); ALKALINE PHOSPHATASE 64 U/L (46-116); ASPARTATE AMINOTRANSFERASE 8 U/L (15-37); B-TYPE NATRIURETIC PEPTIDE 313 PG/ML (0-125); BILIRUBIN,TOTAL 0.2 mg/dL (0.2-1.0); TOTAL PROTEIN, SERUM 6.3 g/dL (6.4-8.2)
--- NOTE | 2019-02-27 01:30 | NUR ---
PT RESTING IN BED, NAD NOTED. WILL CONTINUE TO MONITOR.
[2019-02-27 01:36] LABS: APPEARANCE,URINE Clear (CLEAR); BILIRUBIN,URINE Negative (NEGATIVE); BLOOD, URINE Negative Ery/uL (NEGATIVE); COLOR,URINE Light yellow (YELLOW); KETONES,URINE Negative (NEGATIVE); LEUKOCYTE ESTERASE ,URINE Negative (NEGATIVE); NITRITE, URINE Negative (NEGATIVE); PH,URINE 8.5 (5.0-8.0); PROTEIN,URINE Negative (NEGATIVE); UGLUCOSE Negative (NEGATIVE); UROBILINOGEN,URINE 0.2 EU/dL (0.2)
[2019-02-27] MEDS ORDERED: ONDANSETRON HCL/PF 4 MG/2 ML VIAL IVP PRN (02:00)
[2019-02-27] MEDS ORDERED: MAGNESIUM HYDROXIDE 30 ML UDC PO PRN ×2 (02:00→02:30)
[2019-02-27] MEDS ORDERED: Z GUARD REMEDY 2 OZ OINT TP PRN (02:00)
[2019-02-27] MEDS ORDERED: MAG HYDROX/AL HYDROX/SIMETH 30 ML UDC PO PRN (02:00)
[2019-02-27] MEDS ORDERED: ACETAMINOPHEN 325 MG TABLET PO PRN ×2 (02:00→02:30)
--- NOTE | 2019-02-27 02:16 | NUR ---
REPORT GIVEN TO ALEXANDER SWANN FOR KATHRYN.
[2019-02-27] MEDS ORDERED: BISACODYL SUPP (10 MG) 10 MG/SUPP.RECT SUPP.RECT RC PRN (02:30)
[2019-02-27] MEDS ORDERED: CLONIDINE HCL 0.1 MG TABLET PO PRN (02:30)
--- NOTE | 2019-02-27 02:40 | NUR ---
RN OPEN NOTES RECEIVED PATIENT FROM ER VIA BETTE. A/O4. NO SIGNS OF DISTRESS OR DISCOMFORT. BREATHING EVEN AND UNLABORED. ON 2LPM O2 VIA NC. IV ACCESS IN LAC, PATENT AND INTACT, NO SIGNS OF REDNESS OR INFILTRATION. ORIENTED PATIENT TO UNIT AND ROOM. ATTACHED TO TELE MONITORING WITH SR 88 NOTED. PHOTOS TAKEN. BED IN LOW LOCKED POSITION WITH SIDE RAILS X2. CALL LIGHT WITHIN REACH. WILL CONTINUE TO MONITOR.
[2019-02-27 02:50] VITALS: BP 129/74
[2019-02-27 03:00] VITALS: BP 129/74
[2019-02-27] MEDS: IV NS 0.9% 1,000 ML IV PRN (03:20)
[2019-02-27] MEDS: AZITHROMYCIN 250 MG TABLET PO SCH (03:20)
[2019-02-27] MEDS: DILTIAZEM HCL 30 MG TABLET PO SCH ×3 (05:42→20:32)
[2019-02-27] MEDS: ALBUTEROL FS 2.5 MG/0.5 ML VIAL.NEB NEB SCH ×6 (06:00→23:27)
[2019-02-27] MEDS: IPRATROPIUM NEB FS 0.5 MG/2.5 ML AMPUL.NEB NEB SCH ×6 (06:00→23:27)
--- NOTE | 2019-02-27 07:02 | NUR ---
RN CLOSING NOTES PATIENT RESTING IN BED, EASILY AROUSABLE. A/O4. NO SIGNS OF DISTRESS OR DISCOMFORT. BREATHING EVEN AND UNLABORED. ON 2LPM O2 VIA NC. IV ACCESS IN LAC WITH NS INFUSING, PATENT AND INTACT, NO SIGNS OF REDNESS OR INFILTRATION. ON TELE MONITORING WITH SR 90 NOTED. ALL NEEDS MET. NO SIGNIFICANT CHANGES THROUGH THE NIGHT. BED IN LOW LOCKED POSITION WITH SIDE RAILS X2. CALL LIGHT WITHIN REACH. WILL ENDORSE TO AM SHIFT FOR KATHRYN.
[2019-02-27 08:00] VITALS: BP 109/72
--- NOTE | 2019-02-27 08:00 | NUR ---
FRUIT BUYING GRADER OPENING NOTES Received Patient resting in bed. A/O x 3. VS stable with no acute distress. Breathing even and unlabored on 2LPM via NC with SPO2 94%. Patient stated 8/10 pain on LOWER BACK. Will intervene as ordered. Telemonitor in place and operational reading SR with HR-83. 20g PIV on LAC dry, intact and flushing well with IVF NS running at 50ml/hr. Safety precautions in place and operational with side rails x 2 up. Will continue to monitor.
[2019-02-27] MEDS: HYDROCODONE/APAP 5/325MG 1 EACH TABLET PO PRN ×4 (08:44→22:18)
[2019-02-27] MEDS: CALCIUM CARBONATE 500 MG TAB.CHEW PO SCH ×3 (08:44→17:07)
[2019-02-27] MEDS: PANTOPRAZOLE 40 MG TABLET.DR PO SCH (08:45)
[2019-02-27] MEDS: methylPREDNISolone SOD SUCC 40 MG/ML VIAL IV SCH ×2 (08:45→16:57)
[2019-02-27] MEDS: DOCUSATE SODIUM 100 MG CAPSULE PO SCH ×2 (08:45→16:57)
[2019-02-27] MEDS: CARBIDOPA/LEVODOPA 25/250 MG 1 UDTAB PO SCH ×3 (08:46→16:58)
[2019-02-27] MEDS: DIVALPROEX SODIUM 125 MG TABLET.DR PO SCH (08:46)
[2019-02-27] MEDS: FAMOTIDINE (20 MG) 20 MG TABLET PO SCH (08:46)
[2019-02-27] MEDS: ALPRAZOLAM 1 MG TABLET PO SCH ×2 (08:47→16:58)
[2019-02-27] MEDS: METHIMAZOLE (5MG) 5 MG TABLET PO SCH ×3 (08:47→16:58)
[2019-02-27] MEDS: METOPROLOL TARTRATE 25 MG TABLET PO SCH ×2 (08:51→16:58)
--- NOTE | 2019-02-27 08:52 | NUR ---
MS RN NOTES Per Jimmy BUSH, D/C telemonitoring. Patient in stable condition. Will continue to monitor.
[2019-02-27] MEDS ORDERED: PANTOPRAZOLE 40 MG VIAL IV SCH (09:00)
[2019-02-27] MEDS: GUAIFENESIN LA 600 MG TABLET.SA PO PRN ×2 (09:07→21:55)
--- NOTE | 2019-02-27 09:15 | NUR ---
MS RN NOTES Obtained Sputum sample. Placed in fridge at this time.
[2019-02-27 16:00] VITALS: BP 143/80
--- NOTE | 2019-02-27 19:05 | NUR ---
MS RN NOTES RECEIVED PT IN BED AWAKE AND ABLE TO MAKE NEEDS KNOWN. PT A/O X3. BREATHING EVEN AND UNLABORED WITH NO S/S OF ACUTE DISTRESS OR SOB NOTED. PT WITH LAC IV PATENT AND INTACT RUNNING NS@50ML/HR. SAFETY MEASURES IN PLACE WITH BED IN LOWEST LOCKED POSITION WITH SIDE RAILS UP X2. CALL LIGHT WITHIN REACH. WILL CONTINUE TO MONITOR.
[2019-02-27] MEDS: DIVALPROEX SODIUM 250 MG TABLET.DR PO SCH (20:31)
[2019-02-27 20:43] VITALS: BP 144/73
[2019-02-28] MEDS ORDERED: HYDROCODONE/APAP 5/325MG 1 EACH TABLET PO ONE (01:30)
[2019-02-28] MEDS: AZITHROMYCIN 250 MG TABLET PO SCH (02:25)
[2019-02-28] MEDS: IV NS 0.9% 1,000 ML IV PRN (03:07)
[2019-02-28] MEDS: ALBUTEROL FS 2.5 MG/0.5 ML VIAL.NEB NEB SCH ×5 (03:23→19:56)
[2019-02-28] MEDS: IPRATROPIUM NEB FS 0.5 MG/2.5 ML AMPUL.NEB NEB SCH ×5 (03:24→19:56)
[2019-02-28] MEDS: DILTIAZEM HCL 30 MG TABLET PO SCH ×3 (05:09→21:00)
[2019-02-28 06:51] LABS: HEMATOCRIT 37 % (33-45); HEMOGLOBIN 11.8 g/dL (11.5-14.8); LYMPHOCYTES % (AUTO) 3.3 % (20.0-44.0); MEAN CORPUSCULAR HGB CONC 32 g/dl (31.0-36.0); MEAN CORPUSCULAR VOLUME 89 fL (82-100); MONOCYTES # (AUTO) 1.4 /CMM (0.1-1.30); MONOCYTES % (AUTO) 4.6 % (2.0-12.0); NEUTROPHILS # (AUTO) 27.5 /CMM (1.8-8.9); NEUTROPHILS % (AUTO) 92.1 % (43.0-81.0); PLATELET COUNT (AUTO) 448 /CMM (150-450); RED BLOOD CELL COUNT(AUTO) 4.16 MIL/uL (4.0-5.2); WHITE BLOOD COUNT (AUTO) 29.8 K/uL (4.3-11.0)
[2019-02-28 07:00] LABS: CALCIUM, SERUM 8.7 mg/dL (8.5-10.1); CARBON DIOXIDE 31 mmol/L (21-32); CHLORIDE 94 mmol/L (98-107); CREATININE 0.7 mg/dL (0.6-1.3); GLUCOSE 123 mg/dL (74-106); PHOSPHORUS 2.7 mg/dL (2.5-4.9); POTASSIUM 4.9 mmol/L (3.5-5.1); SODIUM SERUM 131 mmol/L (136-145); UREA NITROGEN, BLOOD 10 mg/dL (7-18)
[2019-02-28 07:06] LABS: CHOLESTEROL 196 mg/dL (<200); HDL CHOLESTEROL 78 mg/dL (40-60); LDL 89 mg/dL (0-99); THYROID STIMULATING HORMONE 0.671 uIU/mL (0.358-3.74); TRIGLYCERIDES 118 mg/dL (30-150)
--- NOTE | 2019-02-28 07:44 | NUR ---
MS RN NOTES PT IN BED AWAKE AND ABLE TO MAKE NEEDS KNOWN. PT A/O X3. BREATHING EVEN AND UNLABORED WITH NO S/S OF ACUTE DISTRESS OR SOB NOTED THROUGHOUT SHIFT. PT WITH LAC IV PATENT AND INTACT RUNNING NS@50ML/HR. SAFETY MEASURES IN PLACE WITH BED IN LOWEST LOCKED POSITION WITH SIDE RAILS UP X2. PT KEPT CLEAN, DRY, AND COMFORTABLE. CALL LIGHT WITHIN REACH. WILL ENDORSE TO ONCOMING NURSE FOR KATHRYN.
[2019-02-28 08:00] VITALS: BP 129/59
--- NOTE | 2019-02-28 08:00 | NUR ---
rn notes Received patient in the bed a/o x3,on o2-2lnc. Patient has no acute respiratory distress, v/s stable, was complaining of pain generalized /. administered scheduled medication. infusing ns at 50ml/hr intact. Patient incontinent using diaper. Assist patient turn and reposition q 2 hr. call light within to reach, safety precaution maintained all the time. patient able to eat self.
[2019-02-28] MEDS: DOCUSATE SODIUM 100 MG CAPSULE PO SCH ×2 (08:12→16:41)
[2019-02-28] MEDS: HYDROCODONE/APAP 5/325MG 1 EACH TABLET PO PRN ×3 (08:12→16:42)
[2019-02-28] MEDS: CARBIDOPA/LEVODOPA 25/250 MG 1 UDTAB PO SCH ×3 (08:12→16:41)
[2019-02-28] MEDS: DIVALPROEX SODIUM 125 MG TABLET.DR PO SCH (08:12)
[2019-02-28] MEDS: CALCIUM CARBONATE 500 MG TAB.CHEW PO SCH ×3 (08:12→18:10)
--- NOTE | 2019-02-28 08:12 | NUR ---
RN NOTES ADMINISTERED NARCO 5/325 MG PO PRN FOR GENERALIZED PAIN 06/21 PER PATIENT REQUEST, V/S TAKEN BP-129/59, P-90, ALSO PATIENT GETTING BREATHING TREATMENT BY RT. CALL LIGHT WITHIN TO REACH, SAFETY PRECAUTION MAINTAINED ALL THE TIME.
[2019-02-28] MEDS: METOPROLOL TARTRATE 25 MG TABLET PO SCH ×2 (08:13→16:45)
[2019-02-28] MEDS: METHIMAZOLE (5MG) 5 MG TABLET PO SCH ×3 (08:13→16:42)
[2019-02-28] MEDS: FAMOTIDINE (20 MG) 20 MG TABLET PO SCH (08:13)
[2019-02-28] MEDS: ALPRAZOLAM 1 MG TABLET PO SCH ×2 (08:13→16:42)
[2019-02-28] MEDS: methylPREDNISolone SOD SUCC 40 MG/ML VIAL IV SCH ×2 (08:14→16:41)
[2019-02-28] MEDS: PANTOPRAZOLE 40 MG TABLET.DR PO SCH (08:24)
--- NOTE | 2019-02-28 13:01 | NUR ---
RN NOTES ADMINISTERED NARCO 5/325 MG PO PRN FOR GENERALIZED PAIN 03/21, V/S TAKEN BP 148/84,P-94. ALSO ADMINISTERED MUCINEX 600 MG PO PRN FOR COUGHING. CONTINUED MONITORING.
[2019-02-28] MEDS: GUAIFENESIN LA 600 MG TABLET.SA PO PRN (13:09)
[2019-02-28 16:00] VITALS: BP 131/74
--- NOTE | 2019-02-28 16:42 | NUR ---
rn notes Administered narco 5/325 mg po prn for generalized pain 03/21 per patient request, also administered scheduled medication. needs attended and anticipated, continued monitoring.
--- NOTE | 2019-02-28 18:30 | NUR ---
RN NOTES MEDICATION WERE ADMINISTERED FOR PAIN EFFECTIVE. PATIENT STABLE. ON O2-2L NC. PATIENT GETTING BREATHING TREATMENT BY RT. CALL LIGHT WITHIN TO REACH. ENDORSED ONCOMING NURSE FOLLOW PLAN OF CARE.
--- NOTE | 2019-02-28 19:05 | NUR ---
MS RN NOTES RECEIVED PT IN BED AWAKE AND ABLE TO MAKE NEEDS KNOWN. PT A/O X3. BREATHING EVEN AND UNLABORED WITH NO S/S OF ACUTE DISTRESS OR SOB NOTED. PT WITH 2L RUNNING VIA NC AND TOLERATING WELL. PT WITH LAC IV PATENT AND INTACT RUNNING NS@50ML/HR WITH NO S/S OF INFILTRATION OR REDNESS NOTED. SAFETY MEASURES IN PLACE WITH BED IN LOWEST LOCKED POSITION WITH SIDE RAILS UP X2. CALL LIGHT WITHIN REACH. WILL CONTINUE TO MONITOR.
[2019-02-28 20:16] VITALS: BP 160/92
[2019-02-28] MEDS: DIVALPROEX SODIUM 250 MG TABLET.DR PO SCH (20:59)
[2019-03-01] MEDS: ALBUTEROL FS 2.5 MG/0.5 ML VIAL.NEB NEB SCH ×7 (00:32→23:30)
[2019-03-01] MEDS: IPRATROPIUM NEB FS 0.5 MG/2.5 ML AMPUL.NEB NEB SCH ×7 (00:32→23:30)
[2019-03-01] MEDS: AZITHROMYCIN 250 MG TABLET PO SCH (02:26)
[2019-03-01] MEDS: IV NS 0.9% 1,000 ML IV PRN (03:47)
[2019-03-01] MEDS: DILTIAZEM HCL 30 MG TABLET PO SCH ×3 (05:39→20:00)
--- NOTE | 2019-03-01 06:57 | NUR ---
MS RN NOTES PT IN BED ASLEEP BUT EASILY AWOKEN VERBALLY OR BY TOUCH. PT A/O X3. BREATHING EVEN AND UNLABORED WITH NO S/S OF ACUTE DISTRESS OR SOB NOTED NOTED THROUGHOUT SHIFT. PT WITH 2L RUNNING VIA NC AND TOLERATING WELL. PT WITH LAC IV PATENT AND INTACT RUNNING NS@50ML/HR WITH NO S/S OF INFILTRATION OR REDNESS NOTED. PT KEPT CLEAN, DRY, AND COMFORTABLE. SAFETY MEASURES IN PLACE WITH BED IN LOWEST LOCKED POSITION WITH SIDE RAILS UP X2. CALL LIGHT WITHIN REACH. WILL ENDORSE TO ONCOMING NURSE FOR KATHRYN.
--- NOTE | 2019-03-01 07:05 | NUR ---
RN NOTES PATIENT IN BED ALERT ORIENTED X 3. NO ACUTE DISTRESS NOTED. BREATHING UNLABORED. NO SOB NOTED. IV ACCESS PATENT AND INTACT. SAFETY MEASURES IN PLACE. CALL LIGHT WITHIN REACH. WILL CONTINUE TO MONITOR ACCORDINGLY.
[2019-03-01 08:00] VITALS: BP 135/68
[2019-03-01 08:19] LABS: CALCIUM, SERUM 8.4 mg/dL (8.5-10.1); CARBON DIOXIDE 32 mmol/L (21-32); CHLORIDE 98 mmol/L (98-107); CREATININE 0.7 mg/dL (0.6-1.3); GLUCOSE 136 mg/dL (74-106); MAGNESIUM 2.8 mg/dL (1.8-2.4); PHOSPHORUS 3.2 mg/dL (2.5-4.9); POTASSIUM 4.7 mmol/L (3.5-5.1); SODIUM SERUM 136 mmol/L (136-145); UREA NITROGEN, BLOOD 14 mg/dL (7-18)
[2019-03-01 08:23] LABS: BASOPHILS % (AUTO) 0.2 % (0.0-2.0); HEMATOCRIT 39 % (33-45); HEMOGLOBIN 12.4 g/dL (11.5-14.8); LYMPHOCYTES # (AUTO) 0.8 /CMM (0.8-4.8); LYMPHOCYTES % (AUTO) 2.7 % (20.0-44.0); MEAN CORPUSCULAR HGB CONC 32 g/dl (31.0-36.0); MEAN CORPUSCULAR VOLUME 90 fL (82-100); MONOCYTES # (AUTO) 1.3 /CMM (0.1-1.30); MONOCYTES % (AUTO) 4.2 % (2.0-12.0); NEUTROPHILS # (AUTO) 28.8 /CMM (1.8-8.9); NEUTROPHILS % (AUTO) 92.9 % (43.0-81.0); PLATELET COUNT (AUTO) 387 /CMM (150-450); RED BLOOD CELL COUNT(AUTO) 4.38 MIL/uL (4.0-5.2)
--- NOTE | 2019-03-01 08:35 | NUR ---
MS RN NOTES WBC 30.[address] SIDDIQI, NO NEW ORDERS MADE AT THIS TIME.
[2019-03-01 08:38] LABS: WHITE BLOOD COUNT (AUTO) 30.9 K/uL (4.3-11.0)
[2019-03-01] MEDS: CALCIUM CARBONATE 500 MG TAB.CHEW PO SCH ×3 (08:43→18:07)
[2019-03-01] MEDS: methylPREDNISolone SOD SUCC 40 MG/ML VIAL IV SCH (08:43)
[2019-03-01] MEDS: PANTOPRAZOLE 40 MG TABLET.DR PO SCH (08:43)
[2019-03-01] MEDS: DOCUSATE SODIUM 100 MG CAPSULE PO SCH ×2 (08:43→16:25)
[2019-03-01] MEDS: DIVALPROEX SODIUM 125 MG TABLET.DR PO SCH (08:44)
[2019-03-01] MEDS: METOPROLOL TARTRATE 25 MG TABLET PO SCH ×2 (08:44→16:28)
[2019-03-01] MEDS: FAMOTIDINE (20 MG) 20 MG TABLET PO SCH (08:44)
[2019-03-01] MEDS: METHIMAZOLE (5MG) 5 MG TABLET PO SCH ×3 (08:45→16:25)
[2019-03-01] MEDS: CARBIDOPA/LEVODOPA 25/250 MG 1 UDTAB PO SCH ×3 (08:45→16:26)
[2019-03-01] MEDS: ALPRAZOLAM 1 MG TABLET PO SCH ×2 (08:45→16:26)
[2019-03-01] MEDS: GUAIFENESIN LA 600 MG TABLET.SA PO PRN (09:29)
[2019-03-01 09:30] LABS: LYMPHOCYTES % (MANUAL) 4 % (16-48); MONOCYTES % (MANUAL) 5 % (0-11.0); NEUTROPHILS % (MANUAL) 91 (42-76)
[2019-03-01] MEDS ORDERED: AZIT250T PO (11:25)
[2019-03-01] MEDS ORDERED: ALBU2.5V13 NEB (11:25)
[2019-03-01] MEDS ORDERED: PRED20TA PO (11:25)
--- NOTE | 2019-03-01 11:35 | NUR ---
MS RN NOTES IV ACCESS ACCIDENTALLY REMOVED. UNABLE TO START NEW IV ACCESS WITH SEVERAL ATTEMPTS. DR SIDDIQI NOTIFIED , SAID SHE WILL CHANGE IV MED ORDERS TO BY MOUTH.
[2019-03-01] MEDS: HYDROCODONE/APAP 5/325MG 1 EACH TABLET PO PRN ×2 (15:31→20:00)
[2019-03-01 16:00] VITALS: BP 118/60
[2019-03-01] MEDS ORDERED: predniSONE 20 MG TABLET PO SCH (17:00)
--- NOTE | 2019-03-01 19:00 | NUR ---
RN NOTES PATIENT IN BED ALERT ORIENTED X 3. NO ACUTE DISTRESS NOTED. BREATHING UNLABORED. NO SOB NOTED.DUE MEDICATIONS GIVEN, NO ASE NOTED. NEEDS ATTENDED AND ANTICIPATED. KEPT CLEAN DRY AND COMFORTABLE. SAFETY MEASURES IN PLACE. CALL LIGHT WITHIN REACH. PATIENT FOR DISCHARGE TO [facility], REPORT GIVEN TO ASHLEIGH SWANN. ENDORSED TO NIGHT NURSE FOR CONTINUITY OF CARE AND DISCHARGE.
--- NOTE | 2019-03-01 19:10 | NUR ---
RN PM OPENING NOTES BEDSIDE REPORT RECIEVED FROM OCTAVIO SWANN. PATIENT IN BED ALERT ORIENTED X 3. NO ACUTE DISTRESS NOTED. BREATHING UNLABORED ON 2LNC. NO SOB NOTED.DUE MEDICATIONS GIVEN, NO ASE NOTED. SAFETY MEASURES IN PLACE. CALL LIGHT WITHIN REACH. PATIENT IS TO BE DISCHARGED TO [facility], REPORT GIVEN TO ASHLEIGH SAWNN BY CECE PER REPORT.
[2019-03-01] MEDS: DIVALPROEX SODIUM 250 MG TABLET.DR PO SCH (19:59)
[2019-03-01 20:00] VITALS: BP 142/95
--- NOTE | 2019-03-01 20:00 | NUR ---
DISCHARGE PAPERWORK REVIEWED DISCHARGE INSTRUCTIONS TO SNF WITH PATIENT VERBALIZED UNDERSTANDING. PATIENT VERBALIZES THAT SHE HAS ALL HER BELONGINGS AND FORM SIGNED. NO IV ACCESS PRESENT. PATIENT TO BE DISCHARGED TO [facility].
[2019-03-01 20:03] VITALS: BP 142/95
--- NOTE | 2019-03-01 20:34 | NUR ---
AMBULANCE BARTENDER SERVER [facility] HERE TO BARTENDER SERVER PATIENT. REPORT GIVEN TO EMT/AMBULANCE TECH MERVIN. QUESTIONS CONCERNS ADDRESSED. PATIENT TO GO BACK TO [facility].
--- NOTE | 2019-03-01 20:34 | NUR ---
AMBULANCE PICKUP TIME VERIFIED TO BE AT 830 [address]IR [address].
--- NOTE | 2019-03-01 21:02 | NUR ---
[facility] HERE PICKING UP PATIENT REPORT GIVEN TO MERVIN EMT/TECH. PATIENT BEING TRANSPORTED TO [facility].
== END 2019-03-01 21:05 | DRG 202 ==
LOC: ER 23:31 → TELE 02-27 01:59 → MED 02-27 08:55
PROVIDERS: ADMIT Student in an Organized Health Care Education/Training Program; ATTEND Student in an Organized Health Care Education/Training Program
DX: J20.9 Acute bronchitis, unspecified (principal); J44.1 Chronic obstructive pulmonary disease with (acute) exacerbation; E87.1 Hypo-osmolality and hyponatremia; E44.1 Mild protein-calorie malnutrition; F13.20 Sedative, hypnotic or anxiolytic dependence, uncomplicated; E86.0 Dehydration; I10 Essential (primary) hypertension; K21.9 Gastro-esophageal reflux disease without esophagitis; M81.0 Age-related osteoporosis without current pathological fracture; D72.829 Elevated white blood cell count, unspecified; F25.0 Schizoaffective disorder, bipolar type; E05.90 Thyrotoxicosis, unspecified without thyrotoxic crisis or storm; E66.9 Obesity, unspecified; F41.9 Anxiety disorder, unspecified; E78.5 Hyperlipidemia, unspecified; G20 Parkinson's disease; Z76.5 Malingerer [conscious simulation]; Y92.129 Unspecified place in nursing home as the place of occurrence of the external cause; T38.0X5A Adverse effect of glucocorticoids and synthetic analogues, initial encounter; Z79.899 Other long term (current) drug therapy; M79.10 Myalgia, unspecified site; Z91.5 Personal history of self-harm
CPT/HCPCS: 36415; 71045-TC; 80048-TC; 80061-TC; 80076-TC; 81000-TC; 83605-TC; 83735-TC; 83880; 84100-TC; 84443-TC; 84484-TC; 85025-TC; 87040-TC; 87070-TC; 87081-TC; 87400; 94799-TC; 97530-TC; G0378; J2270; J2920; J2930; J7030; J7040